=== PATIENT | male | born 1945 | race Caucasian/White ===

== ENCOUNTER 2018-06-21 13:36 | Emergency (ER) | payer OTHER ==
[~2018-06-21] VITALS: Ht 177.8 cm; Wt 73.0 kg
--- NOTE | 2018-06-21 13:40 | NUR ---
BIBRA FOR C/O DIZZINESS SINCE THIS MORNING WHILE AT WORK,CHEST PRESSURE PROMPTED HIM TO CALL 911, TO ER BED 9, HOOKED TO MONITOR, AWAITING MD ROSE
--- NOTE | 2018-06-21 13:48 | NUR ---
DR PAULSON AT BEDSIDE FOR EVAL
[2018-06-21 14:05] LABS: BASOPHILS % (AUTO) 0.9 % (0.0-2.0); EOSINOPHILS % (AUTO) 2.2 % (0.0-6.0); HEMATOCRIT 40 % (39-51); HEMOGLOBIN 13.6 g/dL (13.5-17.5); LYMPHOCYTES # (AUTO) 1.2 /CMM (0.8-4.8); LYMPHOCYTES % (AUTO) 21.3 % (20.0-44.0); MEAN CORPUSCULAR HGB CONC 34 g/dl (31.0-36.0); MEAN CORPUSCULAR VOLUME 96 fL (80-96); MONOCYTES # (AUTO) 0.3 /CMM (0.1-1.30); MONOCYTES % (AUTO) 5.6 % (2.0-12.0); NEUTROPHILS # (AUTO) 3.8 /CMM (1.8-8.9); PLATELET COUNT (AUTO) 203 /CMM (150-450); RED BLOOD CELL COUNT(AUTO) 4.23 MIL/uL (4.5-6.0); WHITE BLOOD COUNT (AUTO) 5.5 K/uL (4.3-11.0)
[2018-06-21 14:12] LABS: CALCIUM, SERUM 9.1 mg/dL (8.5-10.1); CARBON DIOXIDE 31 mmol/L (21-32); CHLORIDE 105 mmol/L (98-107); CREATININE 0.9 mg/dL (0.6-1.3); GLUCOSE 120 mg/dL (74-106); POTASSIUM 3.7 mmol/L (3.5-5.1); SODIUM SERUM 140 mmol/L (136-145); UREA NITROGEN, BLOOD 17 mg/dL (7-18)
[2018-06-21 14:28] LABS: ALANINE AMINOTRANSFERASE 45 U/L (12-78); ALBUMIN 3.6 g/dL (3.4-5.0); ALKALINE PHOSPHATASE 41 U/L (46-116); ASPARTATE AMINOTRANSFERASE 34 U/L (15-37); B-TYPE NATRIURETIC PEPTIDE 24 PG/ML (0-125); BILIRUBIN,DIRECT 0.2 mg/dL (0.0-0.2); BILIRUBIN,TOTAL 0.7 mg/dL (0.2-1.0); TOTAL PROTEIN, SERUM 6.8 g/dL (6.4-8.2)
[2018-06-21] MEDS ORDERED: ASPIRIN 325 MG TABLET ONE (14:39)
--- NOTE | 2018-06-21 14:39 | NUR ---
RECEIVED VERBAL ORDER FROM DR DILLON FOR ASPIRIN 325MG PO. GIVEN TO PT
[2018-06-21] MEDS ORDERED: ASPIRIN 325 MG TABLET PO ONE (15:00)
--- NOTE | 2018-06-21 15:06 | NUR ---
ELEUTERIO LICEA CALLED TO SPEAK TO DR. DILLON WHO WAS IN A PROCEDURE. WILL CALL BACK.
--- NOTE | 2018-06-21 15:12 | NUR ---
SPOKE TO [facility] FOR DR TO DR KELLEY.
--- NOTE | 2018-06-21 15:43 | NUR ---
FAMILY REPORTED SLURRING OF SPEECH, DR DILLON AT BEDSIDE
--- NOTE | 2018-06-21 15:48 | NUR ---
WHEELED OUT VIA [facility] FOR CT HEAD
--- NOTE | 2018-06-21 16:02 | NUR ---
CALLING [facility] SPOKE TO ROJELIO RE: TRANSFER INFO. STILL WORKING ON TRANSFER
--- NOTE | 2018-06-21 16:19 | NUR ---
PT WILL BE TRANSFERRED TO [facility], ACCEPTING PHYSICIAN DR COHN # FOR REPORT [phone] [facility] TRANSPORT WILL BE HERE WITHIN THE HOUR
--- NOTE | 2018-06-21 16:58 | NUR ---
REPORT GIVEN TO RUTH ROBLEDO @ [facility].
--- NOTE | 2018-06-21 17:09 | NUR ---
PT IN BED AWAKE, SITTING UP, HOOKED TO MONITOR, VSS, FAM AT BEDSIDE.
[2018-06-21 17:22] VITALS: BP 129/76
--- NOTE | 2018-06-21 17:43 | NUR ---
Patient discharged [facility] to [facility] in stable condition. Written and verbal after care instructions given. Patient verbalizes understanding of instruction.
== END 2018-06-21 18:05 ==
LOC: ER 13:42 → EDSEX 13:42 → ER 18:05
DX: R07.89 Other chest pain (principal); E78.5 Hyperlipidemia, unspecified; E78.00 Pure hypercholesterolemia, unspecified; R00.1 Bradycardia, unspecified; F10.10 Alcohol abuse, uncomplicated; Y90.9 Presence of alcohol in blood, level not specified; Z86.73 Personal history of transient ischemic attack (TIA), and cerebral infarction without residual deficits
CPT/HCPCS: 36415; 70450; 71045; 80048; 80076; 83880; 84484; 85025; 85730; 93005 ×2; 99285; A4606